=== PATIENT | female | born 1995 | race Caucasian/White ===

== ENCOUNTER → 2020-07-21 | Outpatient (REF) | payer BC ==
[2020-07-21 19:35] LABS: CHLAMYDIA DNA AMPLIFICATION NEGATIVE (NEGATIVE); GC DNA AMPLIFICATION NEGATIVE (NEGATIVE)
== END ==
LOC: M SFHCPLAZ 16:46
PROVIDERS: ATTEND Advanced Practice Midwife
DX: Z11.3 Encounter for screening for infections with a predominantly sexual mode of transmission (principal)

== ENCOUNTER → 2020-07-21 | Outpatient (REF) | payer BC ==
[2020-07-21 18:54] LABS: HEPATITIS A ANTIBODY IGM NEGATIVE (NEGATIVE); HEPATITIS B CORE ANTIBODY IGM NEGATIVE (NEGATIVE); HEPATITIS B SURFACE ANTIGEN NEGATIVE (NEGATIVE); HEPATITIS C VIRUS ABY INDEX < 0.0 INDEX (<0.8); HIV 1&2 SCREEN CENTAUR NEGATIVE (NEGATIVE)
== END ==
LOC: M PLALAB 15:07
PROVIDERS: ATTEND Advanced Practice Midwife
DX: Z11.3 Encounter for screening for infections with a predominantly sexual mode of transmission (principal)

== ENCOUNTER → 2022-12-27 | Outpatient (REF) | payer BC | LOC: M SFHCWAGY 13:04 | PROVIDERS: ATTEND Nurse Practitioner Family | DX: R10.2 Pelvic and perineal pain (principal); Z12.4 Encounter for screening for malignant neoplasm of cervix | CPT/HCPCS: 87491; 87591; 87661; 87798; G0123 ==

== ENCOUNTER → 2023-01-16 | Outpatient (CLI) | payer BC | LOC: M WHC 12:25 | PROVIDERS: ATTEND Nurse Practitioner Family | DX: R10.2 Pelvic and perineal pain (principal) ==

== ENCOUNTER 2024-02-26 14:14 | Outpatient (RCR) | payer BC | END 2024-03-01 | LOC: M PT 14:14 | PROVIDERS: ATTEND Nurse Practitioner Family | DX: N94.10 Unspecified dyspareunia (principal) ==

== ENCOUNTER 2024-03-24 11:35 | Outpatient (RCR) | payer BC | END 2024-03-31 | LOC: M PT 11:35 | PROVIDERS: ATTEND Nurse Practitioner Family | DX: N94.10 Unspecified dyspareunia (principal) ==

== ENCOUNTER 2024-04-08 14:24 | Outpatient (RCR) | payer BC | END 2024-05-01 | LOC: M PT 14:24 | PROVIDERS: ATTEND Nurse Practitioner Family | DX: N94.10 Unspecified dyspareunia (principal) ==

== ENCOUNTER 2024-05-02 13:49 | Outpatient (RCR) | payer BC | END 2024-05-31 | LOC: M PT 13:49 | PROVIDERS: ATTEND Nurse Practitioner Family | DX: N94.10 Unspecified dyspareunia (principal) ==

== ENCOUNTER → 2024-08-21 | Outpatient (CLI) | payer BC ==
[2024-08-21 17:47] LABS: HEMATOCRIT 39.1 % (36.0-47.0); HEMOGLOBIN 13.6 g/dl (12.0-15.5); LDH LACTATE DEHYDROGENASE 148 U/L (120-246); MEAN CORPUSCULAR HEMOGLOBIN 29.5 pg (27.0-33.0); MEAN CORPUSCULAR HGB CONC 34.8 g/dl (32.0-36.5); MEAN CORPUSCULAR VOLUME 84.8 fl (80.0-96.0); PLATELET COUNT, AUTOMATED 261 10^3/uL (150-450); RED BLOOD COUNT 4.61 10^6/uL (4.00-5.40); WHITE BLOOD COUNT 8.9 10^3/uL (4.0-10.0)
[2024-08-21 17:48] LABS: ALT/SGPT 73 U/L (7.0-40); AST/SGOT 25 U/L (<34); BILIRUBIN,TOTAL 0.4 MG/DL (0.3-1.2); CREATININE FOR GFR 0.52 MG/DL (0.55-1.30); GLOMERULAR FILTRATION RATE > 60.0 (>60); GLUCOSE CHALLENGE TEST 1 HOUR 138 MG/DL (LESS THAN 140)
[2024-08-21 17:59] LABS: TOTAL PROTEIN,RANDOM URINE 16.3 MG/DL (0.0-14.0)
[2024-08-21 18:04] LABS: CREATININE,RANDOM URINE 134.3 MG/DL
[2024-08-21 18:10] LABS: URIC ACID 3.9 MG/DL (3.1-7.8)
[2024-08-21 18:15] LABS: HIV 1&2 SCREEN NEGATIVE (NEGATIVE)
[2024-08-21 18:23] LABS: HEMOGLOBIN A1c 4.8 % (4.0-6.0); HEPATITIS C VIRUS ABY INDEX 0.14 INDEX (<0.8)
[2024-08-21 19:00] LABS: Trichomonas vaginalis (AMP) NOT DETECTED (NEGATIVE)
[2024-08-21 19:24] LABS: GC DNA AMPLIFICATION NEGATIVE (NEGATIVE)
== END ==
LOC: M PLALAB 14:13
PROVIDERS: ATTEND Nurse Practitioner Family
DX: Z34.01 Encounter for supervision of normal first pregnancy, first trimester (principal)

== ENCOUNTER → 2024-09-02 | Outpatient (CLI) | payer BC | LOC: M LAB 08:11 | PROVIDERS: ATTEND Nurse Practitioner Family | DX: R73.09 Other abnormal glucose (principal) ==

== ENCOUNTER → 2024-09-17 | Outpatient (CLI) | payer BC | LOC: M PLALAB 08:11 | PROVIDERS: ATTEND Nurse Practitioner Family | DX: Z31.430 Encounter of female for testing for genetic disease carrier status for procreative management (principal) ==

== ENCOUNTER → 2024-10-08 | Outpatient (CLI) | payer BC | LOC: M PLALAB 16:06 | PROVIDERS: ATTEND Nurse Practitioner Family | DX: Z20.828 Contact with and (suspected) exposure to other viral communicable diseases (principal) ==

== ENCOUNTER → 2024-10-31 | Outpatient (CLI) | payer BC | LOC: M WHC 15:28 | PROVIDERS: ATTEND Nurse Practitioner Family | DX: Z34.80 Encounter for supervision of other normal pregnancy, unspecified trimester (principal) ==

== ENCOUNTER → 2025-03-04 | Outpatient (REF) | payer BC | LOC: M PLALAB 15:34 | PROVIDERS: ATTEND Advanced Practice Midwife | DX: Z3A.36 36 weeks gestation of pregnancy (principal) ==

== ENCOUNTER 2025-04-02 15:08 | Inpatient (IN) | payer BC ==
[~2025-04-02] VITALS: Ht 157.5 cm; Wt 114.5 kg
[2025-04-02] MEDS ORDERED: ASPI81CH33 PO (15:56)
[2025-04-02] MEDS ORDERED: OMEP-173 PO (15:56)
[2025-04-02] MEDS ORDERED: PRENTAB9 PO (15:56)
[2025-04-02 16:04] VITALS: BP 118/75
[2025-04-02 17:55] VITALS: BP 112/83
[2025-04-02 18:18] LABS: BASO # 0.0 10^3/uL (0.0-0.2); BASO % 0.3 % (0.0-1.0); EOS # 0.1 10^3/uL (0.0-0.5); EOS % 0.5 % (0.0-3.0); LYMPH # 1.6 10^3/uL (1.5-5.0); LYMPH % 16.0 % (24.0-44.0); MONO # 0.6 10^3/uL (0.0-0.8); MONO % 5.7 % (2.0-8.0); NEUTROPHILS # 7.7 10^3/uL (1.5-8.5); NEUTROPHILS % 76.7 % (36.0-66.0); PLATELET COUNT, AUTOMATED 199 10^3/uL (150-450)
[2025-04-02 19:09] VITALS: BP 111/70
[2025-04-02 19:12] LABS: HIV 1&2 SCREEN NEGATIVE (NEGATIVE)
[2025-04-02 19:20] LABS: HEPATITIS C VIRUS ABY INDEX 0.04 INDEX (<0.8)
[2025-04-02 20:29] VITALS: BP 131/75
[2025-04-02] MEDS ORDERED: TRANEXAMIC ACID INJection 1,000 MG in NS 100 ML IV PRN (20:30)
[2025-04-02] MEDS ORDERED: OXYTOCIN DRIP 30 UNITS in IV 1 EA IV PRN (20:30)
[2025-04-02] MEDS ORDERED: CARBOPROST TROMETHAMINE 250 MCG/ML AMP IM PRN (20:30)
[2025-04-02] MEDS: miSOPROStol 50 MCG 1/2 TABLET PO SCH (20:46)
[2025-04-02 22:06] VITALS: BP 130/76
[2025-04-02 23:18] VITALS: BP 99/55
[2025-04-03] VITALS (27 sets, daily range): BP systolic 93–141; BP diastolic 52–86
[2025-04-03] MEDS: LR 1,000 ML IV SCH (14:58)
[2025-04-03] MEDS: BUTORPHANOL 2 MG/ML 1 ML VIAL IV ONE (14:59)
[2025-04-03] MEDS ORDERED: LR 1,000 ML IV SCH (15:05)
[2025-04-03] MEDS: OXYTOCIN DRIP 30 UNITS in IV 1 EA IV SCH (16:32)
[2025-04-03] MEDS ORDERED: diphenhydrAMINE 50 MG/ML VIAL IV PRN (21:40)
[2025-04-03] MEDS ORDERED: NALOXONE INJ 0.4 MG/1 ML VIAL IV PRN (21:40)
[2025-04-03] MEDS ORDERED: EPIDURAL/PCA KEYS XX PRN (21:40)
[2025-04-03] MEDS: LACTATED RINGER'S 1000 ML IV STA (21:45)
[2025-04-03] MEDS: FENTANYL/ROPIVACAINE/NACL BAG 100 ML EPIDURAL SCH (21:57)
[2025-04-03] MEDS: ONDANSETRON 4MG 2ML VIAL IV PRN (22:55)
[2025-04-04] VITALS (50 sets, daily range): BP systolic 82–144; BP diastolic 48–91; O2SAT 98
[2025-04-04] MEDS: LR 500 ML IV PRN (00:09)
[2025-04-04] MEDS: ACETAMINOPHEN 500 MG TAB PO ONE (11:49)
[2025-04-04] MEDS: LIDOCAINE 1% MDV 20 ML VIAL INFIL PRN (15:50)
[2025-04-04 15:59] LABS: CORD GAS ABE V -6.5
[2025-04-04 16:02] LABS: CORD GAS HCO3 V 20.7 MMOL/L; CORD GAS O2 SAT V 71.8 %; CORD GAS PCO2 V 47.0 mmHg; CORD GAS PH V 7.262 UNITS; CORD GAS PO2 V 41.3 mmHg; CORD GAS SBC V 18.6 MMOL/L; CORD GAS TCO2 V 22.2 MMOL/L
[2025-04-04 16:05] LABS: CORD GAS ABE A -7.9; CORD GAS HCO3 A 18.6 MMOL/L; CORD GAS O2 SAT A 76.3 %; CORD GAS PCO2 A 41.2 mmHg; CORD GAS PH A 7.272 UNITS; CORD GAS PO2 A 35.3 mmHg; CORD GAS SBC A 17.8 MMOL/L; CORD GAS TCO2 A 19.8 MMOL/L
[2025-04-04] MEDS: METHYLERGONOVINE MALEATE 0.2 MG/ML 1 ML VIAL IM PRN (16:37)
[2025-04-04] MEDS ORDERED: IBUPROFEN 600 MG TAB PO PRN (17:20)
[2025-04-04] MEDS ORDERED: DIBUCAINE 1% OINTMENT 30 GM TOP PRN (17:20)
[2025-04-04] MEDS ORDERED: METHYLERGONOVINE MALEATE 0.2 MG TAB PO PRN (17:20)
[2025-04-04] MEDS ORDERED: METHYLERGONOVINE MALEATE 0.2 MG/ML 1 ML VIAL IM ONE (17:20)
[2025-04-04] MEDS ORDERED: ACETAMINOPHEN 325 MG TAB PO PRN (17:20)
[2025-04-04] MEDS ORDERED: RHOGAM 300MCG (1500IU) INJ IM SCH (17:20)
[2025-04-04] MEDS: KETOROLAC 30 MG/ML 1 ML VIAL IV ONE (20:12)
[2025-04-04] MEDS: ACETAMINOPHEN 500 MG TAB PO PRN (23:05)
[2025-04-05] MEDS: IBUPROFEN 800 MG TAB PO PRN (02:03)
[2025-04-05 06:00] VITALS: BP 90/52; O2SAT 97
[2025-04-05 07:27] LABS: PLATELET COUNT, AUTOMATED 148 10^3/uL (150-450)
[2025-04-05] MEDS: DOCUSATE SODIUM 100 MG CAPSULE PO PRN (08:40)
[2025-04-05] MEDS: PRENATAL VITAMINS CHEWABLE TABLET PO SCH (08:40)
[2025-04-05 18:15] VITALS: BP 119/66; O2SAT 98
[2025-04-06 05:51] VITALS: BP 118/78; O2SAT 98
[2025-04-06] MEDS ORDERED: MEASLES,MUMPS,RUBELLA VACCINE INJ (MMR-II) SC.IMMUN ONE (09:00)
[2025-04-06] MEDS ORDERED: IBUP80TA PO (09:00)
[2025-04-06] MEDS ORDERED: ACET-683 PO (09:00)
[2025-04-06] MEDS ORDERED: FERR325T3 PO (12:33)
== END 2025-04-06 17:00 | disposition home or self-care (01) | DRG 541 ==
LOC: M LDI 15:08 → M OBS 04-04 23:19
PROVIDERS: ADMIT Obstetrics & Gynecology; ATTEND Specialist
PROC: 3E0P7GC Introduction of Other Therapeutic Substance into Female Reproductive, Via Natural or Artificial Opening (ICD-10-PCS; 2025-04-02)
PROC: 10E0XZZ Delivery of Products of Conception, External Approach (ICD-10-PCS; principal; 2025-04-04)
PROC: 10D17Z9 Manual Extraction of Products of Conception, Retained, Via Natural or Artificial Opening (ICD-10-PCS; 2025-04-04)
PROC: 0KQM0ZZ Repair Perineum Muscle, Open Approach (ICD-10-PCS; 2025-04-04)
DX: O48.0 Post-term pregnancy (principal); O72.0 Third-stage hemorrhage; O70.1 Second degree perineal laceration during delivery; Z3A.41 41 weeks gestation of pregnancy; Z88.2 Allergy status to sulfonamides; Z79.82 Long term (current) use of aspirin; Z79.899 Other long term (current) drug therapy; Z37.0 Single live birth

== ENCOUNTER 2025-05-17 10:54 | Emergency (ER) | payer BC ==
[~2025-05-17] VITALS: Ht 157.5 cm; Wt 109.3 kg
[~2025-05-17 10:54] MED LIST: ACET-683 PO; ASPI81CH33 PO; FERR325T3 PO; IBUP80TA PO; OMEP-173 PO; PRENTAB9 PO
[2025-05-17 11:27] LABS: KETONE, URINE AUTO RFX NEGATIVE (NEGATIVE); LEUKOCYTE ESTERASE UR AUTO RFX TRACE (NEGATIVE); NITRITE, URINE AUTO RFX NEGATIVE (NEGATIVE); RBC, URINE AUTO RFX 1 /HPF (0-3); SQUAM EPITHELIAL CELL UR AURFX 2 /HPF (0-6); WBC, URINE AUTO RFX 3 /HPF (0-3)
[2025-05-17 11:37] LABS: BASO # 0.0 10^3/uL (0.0-0.2); BASO % 0.4 % (0.0-1.0); EOS # 0.1 10^3/uL (0.0-0.5); EOS % 1.4 % (0.0-3.0); LYMPH # 1.8 10^3/uL (1.5-5.0); LYMPH % 24.5 % (24.0-44.0); MONO # 0.5 10^3/uL (0.0-0.8); MONO % 6.8 % (2.0-8.0); NEUTROPHILS # 4.9 10^3/uL (1.5-8.5); NEUTROPHILS % 66.5 % (36.0-66.0); PLATELET COUNT, AUTOMATED 344 10^3/uL (150-450)
[2025-05-17 12:03] LABS: ALT/SGPT 65 U/L (7.0-40); AST/SGOT 31 U/L (<34)
[2025-05-17 12:25] LABS: HCG, SERUM QUALITATIVE NEGATIVE (NEGATIVE)
[2025-05-17] MEDS: IBUPROFEN 600 MG TAB PO ONE (13:26)
[2025-05-17] MEDS ORDERED: ISOVUE-370 76% 100 ML VIAL As Ordered ONE (13:32)
[2025-05-17] MEDS ORDERED: NYST1POW3 TOP (15:37)
[2025-05-17 15:42] VITALS: BP 126/57; TEMP 97; O2SAT 99
== END 2025-05-17 15:47 | disposition home or self-care (01) ==
LOC: M ED 10:54
DX: R10.9 Unspecified abdominal pain (principal); Z88.2 Allergy status to sulfonamides
CPT/HCPCS: 36415; 74177; 76830; 76856; 80047; 80076; 81001; 83690; 84703; 85025; 87086; 87210; 93976; 99284; Q9967